=== PATIENT | female | born 1995 | race Caucasian/White ===

== ENCOUNTER 2017-11-26 15:03 | Emergency (ER) | payer OTHER ==
[~2017-11-26] VITALS: Ht 167.6 cm; Wt 52.2 kg
== END 2017-11-26 18:27 | disposition home or self-care (01) ==
LOC: ER 15:03 → EDBD 15:03 → ER 15:16
DX: B34.9 Viral infection, unspecified (principal)

== ENCOUNTER 2018-06-21 17:42 | Inpatient (IN) | payer OTHER ==
[~2018-06-21] VITALS: Ht 170.2 cm; Wt 61.7 kg
[2018-06-21] MEDS ORDERED: PRENATAL TABLE1 EAC1 PO (17:45)
== END 2018-06-24 14:15 | disposition home or self-care (01) | DRG 807 ==
LOC: OBS/DEL 17:42 → LDR 22:27 → OB/GYN 22:27 → OBS/DEL 22:27 → OB/GYN 06-22 06:21
PROVIDERS: ADMIT Specialist
PROC: 10E0XZZ Delivery of Products of Conception, External Approach (ICD-10-PCS; principal; 2018-06-21)
PROC: 0UQMXZZ Repair Vulva, External Approach (ICD-10-PCS; 2018-06-21)
PROC: 4A1HXCZ Monitoring of Products of Conception, Cardiac Rate, External Approach (ICD-10-PCS; 2018-06-21)
DX: O70.0 First degree perineal laceration during delivery (principal); Z37.0 Single live birth; Z3A.37 37 weeks gestation of pregnancy

== ENCOUNTER 2020-09-27 15:34 | Emergency (ER) | payer OTHER ==
[~2020-09-27] VITALS: Ht 170.2 cm; Wt 52.6 kg
[~2020-09-27 15:34] MED LIST: PRENATAL TABLE1 EAC1 PO
[2020-09-27] MEDS ORDERED: MUCINEX600 MG PO (22:03)
[2020-09-27] MEDS ORDERED: ACETAMINOPHEN650 M2 PO (22:03)
== END 2020-09-27 19:44 | disposition home or self-care (01) ==
LOC: ER 15:34
DX: B34.9 Viral infection, unspecified (principal); Z11.52 Encounter for screening for COVID-19

== ENCOUNTER 2021-05-14 06:53 | Inpatient (IN) | payer OTHER ==
[~2021-05-14] VITALS: Ht 154.9 cm; Wt 64.4 kg
[~2021-05-14 06:53] MED LIST changes: +ACETAMINOPHEN650 M2 PO; +MUCINEX600 MG PO
[2021-05-14] MEDS ORDERED: PRENATAL TABLE1 EAC1 PO (08:49)
[2021-05-14] MEDS ORDERED: FOLIC ACID20 MG PO (08:49)
== END 2021-05-16 11:34 | disposition home or self-care (01) | DRG 807 ==
LOC: LDR 06:53 → OB/GYN 06:53 → SURG-SUITE 06:53 → OB/GYN 12:39
PROVIDERS: ADMIT Specialist; ATTEND Specialist
PROC: 10E0XZZ Delivery of Products of Conception, External Approach (ICD-10-PCS; principal; 2021-05-14)
PROC: 4A1HXFZ Monitoring of Products of Conception, Cardiac Rhythm, External Approach (ICD-10-PCS; 2021-05-14)
DX: O80 Encounter for full-term uncomplicated delivery (principal); Z37.0 Single live birth; Z3A.38 38 weeks gestation of pregnancy

== ENCOUNTER 2021-06-11 10:16 | Emergency (ER) | payer OTHER ==
[~2021-06-11] VITALS: Ht 170.2 cm; Wt 54.4 kg
[~2021-06-11 10:16] MED LIST changes: +FOLIC ACID20 MG PO
== END 2021-06-11 11:15 | disposition home or self-care (01) ==
LOC: ER 10:16
DX: N63.20 Unspecified lump in the left breast, unspecified quadrant (principal)

== ENCOUNTER 2023-05-07 12:04 | Emergency (ER) | payer OTHER ==
[~2023-05-07] VITALS: Ht 170.2 cm; Wt 58.1 kg
[2023-05-07 13:18] LABS: HEMATOCRIT 39.1 % (36.0-45.00); HEMOGLOBIN 13.3 g/dL (12.0-15.00); MEAN CELL VOLUME 96.4 fL (80.00-100.00); MEAN CORPUSCULAR HEMOGLOBIN 32.7 pg (27.00-32.0); MEAN CORPUSCULAR HGB CONC 33.9 g/dl (32.0-36.0); PLATELET COUNT 185 K/uL (150-450); RED BLOOD COUNT 4.06 M/uL (4.00-6.00); RED CELL DISTRIBUTION WIDTH 13.2 % (11.5-14.5)
[2023-05-07] MEDS ORDERED: TUSNEL LIQUID178 ML PO (14:32)
[2023-05-07] MEDS ORDERED: ZITHROMAX500 MG PO (14:32)
== END 2023-05-07 14:41 | disposition home or self-care (01) ==
LOC: ER 12:05
PROVIDERS: General Practice
DX: B34.9 Viral infection, unspecified (principal); Z20.822 Contact with and (suspected) exposure to COVID-19

== ENCOUNTER 2024-09-08 13:30 | Inpatient (IN) | payer OTHER ==
[~2024-09-08] VITALS: Ht 170.2 cm; Wt 64.0 kg
[~2024-09-08 13:30] MED LIST changes: +TUSNEL LIQUID178 ML PO; +ZITHROMAX500 MG PO
[2024-09-13 05:44] VITALS: BP 126/81
[2024-09-13] MEDS ORDERED: ERYTHROMYCIN BASE OPHT 1GM EACH TUBE OP ONE ×2 (06:42→07:30)
[2024-09-13] MEDS ORDERED: OXYTOCIN 20 UNITS/1000ML RL PIGGYBAG IV ONE ×2 (06:42→07:30)
[2024-09-13] MEDS ORDERED: LIDOCAINE HCL 1% 10ML VIAL ONE (06:42)
[2024-09-13] MEDS ORDERED: RINGERS SOLUTION,LACTATED 1,000 ML IV SCH (06:45)
[2024-09-13 06:47] LABS: HEMATOCRIT 33.4 % (36.0-45.00); HEMOGLOBIN 11.5 g/dL (12.0-15.00); MEAN CELL VOLUME 94.3 fL (80.00-100.00); MEAN CORPUSCULAR HEMOGLOBIN 32.5 pg (27.00-32.0); MEAN CORPUSCULAR HGB CONC 34.5 g/dl (32.0-36.0); PLATELET COUNT 238 K/uL (150-450); RED BLOOD COUNT 3.54 M/uL (4.00-6.00); URINE APPEARANCE Clear; URINE BILIRRUBIN Negative (NEGATIVE); URINE BLOOD Negative; URINE COLOR Yellow; URINE GLUCOSE Negative (NEGATIVE); URINE KETONE Negative (NEGATIVE); URINE LEUKOCYTE Trace; URINE NITRATE Negative; URINE PROTEIN Negative (NEGATIVE); URINE UROBILINOGEN 0.2 E.U./dl
[2024-09-13 06:48] LABS: URINE BACTERIA 1022.9 uL (0.0-1933); URINE EPITHELIAL CELLS 8.8 uL (0.0-38.8); URINE WBC 20.1 uL (0.0-23.2)
[2024-09-13 06:54] LABS: URINE RBC 0.7 uL (0.0-20.8)
[2024-09-13 07:13] LABS: INR < 0.93; PARTIAL THROMBOPLASTIN TIME 25.6 SECONDS (22.0-34.0); PROTHROMBIN TIME 9.9 SECONDS (9.0-11.5)
[2024-09-13] MEDS ORDERED: ACETAMINOPHEN 325 MG TABLET PO PRN (07:30)
[2024-09-13] MEDS ORDERED: CHLORHEXIDINE GLUCONATE 120 ML BOTTLE TOP ONE (07:30)
[2024-09-13] MEDS ORDERED: IBUprofen 800 MG TABLET PO PRN (07:30)
[2024-09-13 07:32] VITALS: BP 128/84
[2024-09-13 07:45] VITALS: BP 138/81
[2024-09-13 07:54] LABS: BILIRUBIN TOTAL 0.51 mg/dL (0.3-1.2); CALCIUM 8.8 mg/dL (8.5-10.1); CREATININE SERUM 0.56 mg/dL (0.55-1.02); GFR 127.99; GLOBULINA 4.2 G/DL (2.4-3.5); POTASSIUM 4.27 mEq/L (3.5-5.1); TOTAL PROTEIN 7.2 gm/dL (6.4-8.2)
[2024-09-13 08:00] VITALS: BP 132/85
[2024-09-13] MEDS ORDERED: HYDROCORTISONE 2.5% 30 GM TUBE RECTAL SCH (09:00)
[2024-09-13] MEDS ORDERED: BENZOCAINE/MENTHOL 90 ML BOTTLE TOP SCH (09:00)
[2024-09-13 09:44] VITALS: BP 116/79
[2024-09-13 15:00] VITALS: BP 116/75
[2024-09-14 01:00] VITALS: BP 137/86
[2024-09-14 02:48] LABS: HEMATOCRIT 30.7 % (36.0-45.00); HEMOGLOBIN 10.5 g/dL (12.0-15.00); MEAN CELL VOLUME 94.6 fL (80.00-100.00); MEAN CORPUSCULAR HEMOGLOBIN 32.3 pg (27.00-32.0); MEAN CORPUSCULAR HGB CONC 34.2 g/dl (32.0-36.0); PLATELET COUNT 205 K/uL (150-450); RED BLOOD COUNT 3.25 M/uL (4.00-6.00); RED CELL DISTRIBUTION WIDTH 12.8 % (11.5-14.5)
[2024-09-14 08:00] VITALS: BP 109/70
[2024-09-14 16:19] VITALS: BP 111/72
[2024-09-15 00:43] VITALS: BP 111/73
[2024-09-15 08:00] VITALS: BP 111/75
== END 2024-09-15 15:01 | disposition home or self-care (01) | DRG 807 ==
LOC: OB/GYN 09-13 06:06 → LDR 09-13 06:06 → OB/GYN 09-13 07:40
PROVIDERS: ADMIT Specialist; ATTEND Specialist
PROC: 10E0XZZ Delivery of Products of Conception, External Approach (ICD-10-PCS; principal; 2024-09-13)
PROC: 4A1HXCZ Monitoring of Products of Conception, Cardiac Rate, External Approach (ICD-10-PCS; 2024-09-13)
DX: O80 Encounter for full-term uncomplicated delivery (principal); Z37.0 Single live birth; Z3A.40 40 weeks gestation of pregnancy